=== PATIENT | female | born 1960 | race Caucasian/White ===

== ENCOUNTER → 2020-04-18 | Outpatient (CLI) | payer BC ==
[2015-07-31 11:39] VITALS: BP 104/67
[~2020-04-18] MED LIST: DIPH25CA58 PO; LEVO50TA5 PO; PANT40TA77 PO
--- NOTE | 2020-04-19 09:22 | KCIC ---
Bilateral digital screening mammograms with 3-D tomosynthesis: Reason for examination: Routine screening. New baseline. Bilateral mammograms in CC and oblique projections were obtained with 2-D imaging and 3-D tomosynthesis imaging on a Siemens Inspiration unit and reviewed on the workstation. The skin and nipples show no abnormalities. No abnormal axillary lymph nodes are seen. The breast parenchyma is heterogeneously dense. (Breast density: Category C.) There appears to be a small nodular parenchymal density anterior laterally at approximately the 9:00 position 4.5 cm posterior to the nipple of the right breast and measuring approximately 9 mm in size. Recommend further evaluation with ultrasound. There are no other dominant masses, suspicious calcifications or architectural distortion. Impression: Small 9 mm nodular density anteriorly in the right breast at approximately the 9:00 position 4.5 cm from the nipple. Recommend further evaluation with ultrasound. Your patient's mammogram demonstrates that she has dense breast tissue (breast density category C or D), which could hide abnormalities, and if she has other risk factors for breast cancer that have been identified, she might benefit from supplemental screening tests that may be suggested by you as her ordering physician. Dense breast tissue, in and of itself, is a relatively common condition. Therefore, this information is not provided to cause undue concern, but rather to raise your awareness and to promote discussion with your patient regarding the presence of other risk factors, in addition to dense breast tissue. Your patient's mammography results will be sent to her. BI-RAD Category 0: Incomplete. Needs additional imaging evaluation. "Our facility is accredited by the [employer] Mammography [employer]." This patient's information has been entered into a reminder system for the patient to be notified with the results of her examination and a target date for the next mammogram. Electronically signed by: Tika Martínez MD (04/19/2020 9:19 AM) [email or web address]
== END | disposition home or self-care (01) ==
LOC: KCIC MAMMO 11:01
PROVIDERS: ATTEND Obstetrics & Gynecology
DX: Z12.31 Encounter for screening mammogram for malignant neoplasm of breast (principal); N64.89 Other specified disorders of breast
CPT/HCPCS: 77063; 77067

== ENCOUNTER → 2020-05-09 | Outpatient (CLI) | payer BC ==
[2015-07-31 11:39] VITALS: BP 104/67
--- NOTE | 2020-05-09 09:34 | KCIC ---
Right breast ultrasound: Reason for examination: Parenchymal density on screening mammogram. Examination of the right breast with attention to the area of mammographic concern and axilla was performed. At the 9:00 position 4.5 cm from the nipple, there is a small focus of some minimal fibrocystic change. No other cystic or solid lesions are seen. There is some ductal ectasia in the retroareolar position. No abnormal appearing lymph nodes are seen in the axilla. IMPRESSION: Minimal focal fibrocystic changes at the 9:00 position. No suspicious abnormality seen. Recommend 6 month follow-up with right breast mammograms and ultrasound. BI-RADS Category 3: Probably Benign. "Our facility is accredited by the [employer] Mammography [employer]." This patient's information has been entered into a reminder system for the patient to be notified with the results of her examination and a target date for the next mammogram. Electronically signed by: Tika Martínez MD (05/09/2020 9:31 AM) [email or web address]
== END ==
LOC: KCIC US 09:01
PROVIDERS: ATTEND Obstetrics & Gynecology
DX: R92.2 Inconclusive mammogram (principal)
CPT/HCPCS: 76641

== ENCOUNTER → 2021-01-02 | Outpatient (CLI) | payer BC ==
[2015-07-31 11:39] VITALS: BP 104/67
--- NOTE | 2021-01-02 11:31 | KCIC ---
Right breast diagnostic digital mammograms with 3-D tomosynthesis: Reason for examination: Follow-up nodule. Comparison is made to previous study dated 04/18/2020. Right breast mammograms in CC and oblique projections were obtained with 2-D imaging and 3-D tomosynt hesis imaging on a Siemens Inspiration unit and reviewed on the workstation. Interpretation was made with the benefit of CAD. The skin and nipple show no abnormalities. No abnormal axillary lymph nodes are seen. The breast pare nchyma is heterogeneously dense. (Breast density: Category C.) There continues to be a small nodular parenchymal density at the 9:00 B position of the right breast which appears to be stable. There are no new dominant masses, suspicious calcifications or architectural distortion. Impression: Continued presence of a small nodular density at the 9:00 B position of the right breast. Ultrasound to follow. Your patient's mammogram demonstrates that she has dense breast tissue (breast density category C or D), which could hide abnormalities, and if she has other risk factors for breast cancer that have bee n identified, she might benefit from supplemental screening tests that may be suggested by you as her ordering physician. Dense breast tissue, in and of itself, is a relatively common condition. Therefo re, this information is not provided to cause undue concern, but rather to raise your awareness and t o promote discussion with your patient regarding the presence of other risk factors, in addition to d ense breast tissue. Your patient's mammography results will be sent to her. BI-RAD Category 0: Incomplete. Needs additional imaging evaluation. Right breast ultrasound: Comparison is made to previous study dated 05/09/2020. Ultrasound examination of the right breast and axilla was performed. At the 9:00 position 4.5 cm from the nipple, there continues to be a patch of fibrocystic-type change which appears to be stable. There are no new cystic or solid nodules. No abnormal appearing lymph no ally are seen in the right axilla. IMPRESSION: Continued presence of focal fibrocystic type changes at the 9:00 position which appear to be stable. No suspicious abnormalities are seen. Recommend continued 6 month follow-up with ultrasound which can be performed at the time of bilateral mammograms. BI-RADS Category 3: Probably Benign. "Our facility is accredited by the [employer] Mammography [employer]." This patient's information has been entered into a reminder system for the patient to be notified wit h the results of her examination and a target date for the next mammogram. Electronically signed by: Tika Martínez MD (01/02/2021 11:29 AM) [email or web address]
== END ==
LOC: KCIC MAMMO 09:59
PROVIDERS: ATTEND Obstetrics & Gynecology
DX: N63.13 Unspecified lump in the right breast, lower outer quadrant (principal)
CPT/HCPCS: 76641; 77065; G0279; 77061